=== PATIENT | female | born 1995 | race Caucasian/White ===

== ENCOUNTER 2017-09-01 01:45 | Inpatient (IN) | payer OTHER ==
[2017-09-01] MEDS ORDERED: Witch Hazel PAD* JAR TOPICAL PRN (04:58)
[2017-09-01] MEDS ORDERED: Dibucaine 1% 28.35 GM TUBE PR PRN (04:58)
[2017-09-01] MEDS ORDERED: Glycerin ADULT SUPP PR PRN (04:58)
[2017-09-01] MEDS ORDERED: Acetaminophen TAB* 325 MG PO PRN (04:58)
[2017-09-01] MEDS ORDERED: Simethicone TAB* 80 MG TAB.CHEW PO SCH (08:30)
[2017-09-01] MEDS ORDERED: Varicella Virus Vaccine Live* 0.5 ML VIAL SUBCUT ONE (09:00)
[2017-09-01] MEDS: Docusate CAP* 100 MG PO SCH ×2 (09:16→21:58)
[2017-09-01] MEDS: Ibuprofen TAB* 600 MG PO PRN ×3 (09:59→21:58)
[2017-09-02] MEDS: Ibuprofen TAB* 600 MG PO PRN ×3 (04:18→18:17)
[2017-09-02] MEDS ORDERED: Ferrous Gluconate TAB* 324 MG TAB PO SCH (09:00)
[2017-09-02 09:32] LABS: Hematocrit 30 % (35-47); Hemoglobin 9.7 g/dl (12.0-16.0); Mean Corpuscular HGB Conc 32 g/dl (31-36); Mean Corpuscular Hemoglobin 25 pg (27-31); Mean Corpuscular Volume 79 fL (80-97); Mean Platelet Volume 8 um3 (7.4-10.4); Red Blood Count 3.85 10^6/ul (4.0-5.4); Red Cell Distribution Width 15 % (10.5-15); White Blood Count 11.8 10^3/ul (3.5-10.8)
[2017-09-02] MEDS: Docusate CAP* 100 MG PO SCH ×2 (09:51→14:55)
[2017-09-02 10:59] VITALS: BP 115/63
== END 2017-09-02 19:33 | disposition home or self-care (01) | DRG 560 ==
LOC: MCHOBOUT 01:45 → MCHOB 03:38
PROVIDERS: ADMIT Midwife; ATTEND Midwife
PROC: 10E0XZZ Delivery of Products of Conception, External Approach (ICD-10-PCS; principal; 2017-09-01)
PROC: 10907ZC Drainage of Amniotic Fluid, Therapeutic from Products of Conception, Via Natural or Artificial Opening (ICD-10-PCS; 2017-09-01)
PROC: 4A1HXCZ Monitoring of Products of Conception, Cardiac Rate, External Approach (ICD-10-PCS; 2017-09-01)
DX: O71.82 Other specified trauma to perineum and vulva (principal); O90.81 Anemia of the puerperium; Z3A.39 39 weeks gestation of pregnancy; Z37.0 Single live birth
CPT/HCPCS: 36415; 85025; A9270-GY

== ENCOUNTER 2019-10-16 08:10 | Inpatient (IN) | payer MEDICAID ==
[2019-10-16 09:05] LABS: Urine Benzodiazepine Screen None Detected (None Detect); Urine Opiates Screen None Detected (None Detect)
--- NOTE | 2019-10-16 09:40 | HP ---
General Information - Reason for Visit IUP at 38-6/7 with pre-labor rupture of membranes - General Information Maternal Age: 24 Grav: 3 Para: 2 SAB: 0 IEA: 0 Estimated Due Date: 10/24/19 Determined By: Early Ultrasound Gestational Age in Weeks/Days: 38-6/7 Maternal Blood Type and Rh: O Positive - Results this Serology/RPR Result: Non-Reactive Rubella Result: Immune HBsAg Result: Negative HIV Result: Negative GBS Culture Result: Negative Past Medical History Delivery History: Hx Uncomplicated Vaginal Delivery Delivery History Comment: 02/2016 liveborn 6lb 10oz girl. IOL for pre-eclampsia. Delivered at [facility] by Felipe Zhu CNM 08/2017 8lbs 3oz boy. Delivered at [facility] by Charmaine Nagel CNM Pertinent Past Medical History: Non-Contributory Pertinent Past Surgical History: See Records Past Surgical History Comment: 08/2014 [place] tooth extraction Pertinent Family History: See Records Family History Comment: Cancer, Colon cancer - Antepartal Records Antepartal Records: Reviewed, Uncomplicated Review of Systems Constitutional: Comfortable CV Complaint: No Respiratory: Shortness of Breath: No Gastrointestinal: No Nausea/Vomiting, Normal Bowel Movement Genitourinary: Leaking Fluid - since 0550 this morning, clear, No Dysuria, No Bleeding Musculoskeletal: No Complaint - generalized discomfort of advanced but no specific concerns Neurological: No Headache, No Visual Changes Movement: Normal Exam Allergies/Adverse Reactions: Allergies No Known Allergies Allergy (Verified 10/16/19 08:55) BP 111/68 HR 96 RR 20 T 97.3 SpO2 98% on RA Lab Values - Entire Visit: Laboratory Tests 10/16/19 10/16/19 08:18 08:18 Vag Amniotic Fld Detect Positive Urine Opiates Screen None detected Ur Barbiturates Screen None detected Ur Phencyclidine Scrn None detected Ur Amphetamines Screen None detected U Benzodiazepines Scrn None detected Urine Cocaine Screen None detected - Measurements Height: 5 ft 2 in Weight: 223 lb Weight in lbs: [phone] Body Mass Index (BMI): 40.8 Pre- Weight: 200 lb Weight Gained This : 23 lbs and 0 ozs - Exam Breast: Breast Exam Deferred CVA: No CVA Tenderness Extremities: No Edema Heart: Normal Rhythm/Heart Sounds HEENT: No Significant Findings Lungs: Clear Bilaterally Rectal: Rectal Exam Deferred Reflexes: DTR 2+ Thyroid: No Thyromegaly - Abdominal Exam Abdomen Exam: Non-Tender, Fundal Height Consistent with Dates Targeted Exam Findings See L&D Outpatient Visit Provider Note for Findings: N/A Estimated Weight: EFW 8lbs by Suzanne Cervical Exam: 2cm Effacement: 80% Station: -1 Presenting Part: Vertex - at last check in office 10/12/2019 Membrane Status: Leaking Amniotic Fluid Evaluation: Positive ROM Plus, Clear Sterile Speculum Exam: Not done Bleeding/Discharge: Bloody Show EFM Findings - External Monitor Findings Baseline Heart Rate: 125 External Monitor Findings: Accelerations Present, No Pattern of Variable or Late Decelerations, Variability Moderate, Baseline Stable External Monitor Findings Comment: No evidence of metabolic acidemia Contractions: None Assessment/Plan - Assessment IUP at 38-6/7 with prelabor rupture of membranes No evidence of metabolic acidemia - Plan Plan: Admit - Anticipate Vaginal Delivery Plan Comment: Recommend induction of labor in presence of rupture to minimize risk of infection. PARQ IV pitocin. Pt agrees. Will request pain relief if desired. Anticipate progression to active labor - Date/Time of Admission Date of Admission: 10/16/19 Time of Admission: 09:22
[2019-10-16] MEDS ORDERED: Lactated Ringers 1000 ML Bag* 1,000 ML IV SCH ×2 (10:00→15:00)
[2019-10-16] MEDS ORDERED: Oxytocin in LR* 20 UNITS/1,000 ML BAG IVPB SCH ×2 (10:00→15:00)
[2019-10-16 10:20] LABS: ABS Lymphocytes 1.7 10^3/ul (1.0-4.8); ABS Monocytes 0.6 10^3/ul (0-0.8); ABS Neutrophils 7.3 10^3/ul (1.5-7.7); Eosinophil % 0.3 %; Hematocrit 34 % (35-47); Hemoglobin 11.7 g/dL (12.0-16.0); Lymphocyte % 17.3 %; Mean Corpuscular HGB Conc 34 g/dL (31-36); Mean Corpuscular Hemoglobin 27 pg (27-31); Mean Corpuscular Volume 79 fL (80-97); Mean Platelet Volume 7.3 fL (7.4-10.4); Platelet Count 205 10^3/uL (150-450); Red Blood Count 4.39 10^6 /uL (3.70-4.87); Red Cell Distribution Width 16 % (10-15); White Blood Count 9.6 10^3/uL (3.5-10.8)
--- NOTE | 2019-10-16 12:21 | PN ---
Progress Note - Progress Note Date of Service: 10/16/19 Note: S: Pt resting on right side. Teary but breathing through contractions and able to rest in between. Interested in discussing pain relief options but unsure what she wants O: BP 113/66 HR 89 T 98.7 FHT 125bpm. Moderate variability. Due to maternal position changes difficult to assess continuously and sometimes maternal HR in the 80's is present UCs q 2-4 IV pitocin at 10mu/min VE 5cm/90%/vtx -1, clear fluid, + bloody show A: IUP at 38-6/7 in labor No evidence of metabolic acidemia P: Lengthy review of pain relief options: epidural/ITF vs. IV pain relief vs. Nitrous oxide. Pt will trial nitrous oxide. Re-eval in 1-2 hours or sooner as needed
[2019-10-16] MEDS ORDERED: Dibucaine 1% 28.35 GM TUBE PR PRN (14:01)
[2019-10-16] MEDS ORDERED: Glycerin ADULT SUPP PR PRN (14:01)
[2019-10-16] MEDS ORDERED: Witch Hazel PAD* JAR TOPICAL PRN (14:01)
--- NOTE | 2019-10-16 14:10 | PROCNOTE ---
[facility] OB: Delivery Note - Delivery A Date of : 10/16/19 Time of : 13:50 [place] Sex: Male - "Quinn" Weight at : 8 lb 6 oz Score 1 Minute: 8 Score 5 Minutes: 9 Gestational Age in Weeks and Days at Delivery: 38 Weeks and 6 Days Delivery Method: Spontaneous Vaginal Labor: Induced - for prelabor rupture of membranes Did Patient attempt ?: N/A, No Previous Amniotic Fluid: Clear Estimated Blood Loss: 400 Anesthesia/Analgesia: Nitrous-Labor Delivered By: Scooter Serra - Nursery Level of Nursery: Regular/Bedside - Perineum Perineal Injury: None/Intact Perineal Repair: None - Events Delivery Events of Note: Pitocin During Labor - Additional Delivery Notes Additional Delivery Notes: Pt admitted with prelabor rupture of membranes at 38-6/7. IV pitocin led to onset active labor with expected progression to complete. Length of active phase hours, 39 min. Pushed x 1 min. liveborn male male. Slow, controlled delivery of head. OA to LOT. Shoulders followed easily with maternal push. Infant vigorous with spontaneous cry. HR>110bpm. Delivered to maternal abdomen. Cord clamped x 2 and cut by FOB when pulsations ceased. Spontaneous delivery intact placenta. Membranes complete. Large gush of bleeding with placenta. Resolved with fundal massage and IV pitocin infusing. Perineum intact. No repair needed as above. EBL 400mL. At time of note mother and infant in stable condition. Planning to breast feed.
[2019-10-16] MEDS: Ibuprofen TAB* 600 MG PO SCH ×2 (15:05→21:54)
[2019-10-16] MEDS ORDERED: Simethicone TAB* 80 MG TAB.CHEW PO SCH (17:30)
[2019-10-16] MEDS: Docusate CAP* 100 MG PO SCH (21:54)
[2019-10-17] MEDS: Ibuprofen TAB* 600 MG PO SCH ×2 (04:27→16:15)
[2019-10-17 08:14] LABS: ABS Basophils 0.1 10^3/ul (0-0.2); ABS Lymphocytes 2.4 10^3/ul (1.0-4.8); ABS Monocytes 0.7 10^3/ul (0-0.8); ABS Neutrophils 8.9 10^3/ul (1.5-7.7); Eosinophil % 0.4 %; Hematocrit 35 % (35-47); Hemoglobin 11.6 g/dL (12.0-16.0); Mean Corpuscular HGB Conc 34 g/dL (31-36); Mean Corpuscular Hemoglobin 26 pg (27-31); Mean Corpuscular Volume 79 fL (80-97); Mean Platelet Volume 7.3 fL (7.4-10.4); Platelet Count 191 10^3/uL (150-450); Red Blood Count 4.39 10^6 /uL (3.70-4.87); Red Cell Distribution Width 16 % (10-15); White Blood Count 12.2 10^3/uL (3.5-10.8)
[2019-10-17] MEDS: Docusate CAP* 100 MG PO SCH (08:58)
[2019-10-17] MEDS: Acetaminophen TAB* 325 MG PO PRN ×2 (08:58→16:15)
[2019-10-17] MEDS ORDERED: Ferrous Gluconate TAB* 324 MG TAB PO SCH (09:00)
[2019-10-17 12:20] VITALS: BP 112/63
[2019-10-17] MEDS ORDERED: Varicella Virus Vaccine Live* 0.5 ML VIAL SUBCUT ONE (13:00)
== END 2019-10-17 17:10 | disposition home or self-care (01) | DRG 560 ==
LOC: MCHOBOUT 08:10 → MCHOB 09:22
PROVIDERS: ADMIT Midwife; ATTEND Midwife
PROC: 10E0XZZ Delivery of Products of Conception, External Approach (ICD-10-PCS; principal; 2019-10-16)
DX: O42.02 Full-term premature rupture of membranes, onset of labor within 24 hours of rupture (principal); Z37.0 Single live birth; Z3A.38 38 weeks gestation of pregnancy
CPT/HCPCS: 36415; 80307; 84112; 85025; 86850; 86900; 86901; A9270-GY; G0480